=== PATIENT | female | born 1960 | race Two or more races ===

== ENCOUNTER 2024-05-01 10:35 | Emergency (ER) | payer BC ==
[~2024-05-01] VITALS: Ht 162.6 cm; Wt 59.0 kg
[2024-05-01 11:08] VITALS: BP 103/68; O2SAT 99
[2024-05-01] MEDS ORDERED: ENBREL50 MG/1 M2 SUBCUTANEO (11:08)
[2024-05-01] MEDS ORDERED: 0.9 % SODIUM CHLORIDE 1,000 ML IV STA (11:44)
[2024-05-01] MEDS ORDERED: KETOROLAC TROMETHAMINE 60 MG VIAL IM ONE (11:52)
[2024-05-01] MEDS ORDERED: KETOROLAC TROMETHAMINE 30 MG VIAL IV ONE (12:00)
[2024-05-01 12:34] LABS: HEMATOCRIT 36.8 % (36.0-45.00); HEMOGLOBIN 12.5 g/dL (12.0-15.00); MEAN CELL VOLUME 85.2 fL (80.00-100.00); PLATELET COUNT 156 K/uL (150-450); RED BLOOD COUNT 4.32 M/uL (4.00-6.00); RED CELL DISTRIBUTION WIDTH 12.8 % (11.5-14.5)
[2024-05-01 12:56] LABS: CALCIUM 8.6 mg/dL (8.5-10.1); CREATININE SERUM 0.7 mg/dL (0.55-1.02); GFR 84.24; POTASSIUM 3.7 mEq/L (3.5-5.1)
== END 2024-05-01 15:51 | disposition home or self-care (01) ==
LOC: ER 10:38
PROVIDERS: General Practice
DX: R53.81 Other malaise (principal); K52.89 Other specified noninfective gastroenteritis and colitis; Z20.822 Contact with and (suspected) exposure to COVID-19; Z88.2 Allergy status to sulfonamides